=== PATIENT | female | born 1950 | race Hispanic/Latino ===

== ENCOUNTER → 2018-08-26 | Outpatient (CLI) | payer OTHER | END | disposition home or self-care (01) | LOC: OIH 14:40 | PROVIDERS: ATTEND Family Medicine | DX: Z13.6 Encounter for screening for cardiovascular disorders (principal) | CPT/HCPCS: 75571 ==

== ENCOUNTER 2022-09-02 16:28 | Emergency (ER) | payer OTHER ==
[~2022-09-02] VITALS: Ht 157.5 cm; Wt 72.6 kg
[2022-09-02 17:01] LABS: BASOPHILS % (AUTO) 0.4 % (0.0-5.0); EOSINOPHILS % (AUTO) 0.5 % (0.0-8.0); HEMATOCRIT 36.2 % (36-48); LYMPHOCYTES % (AUTO) 19.1 % (21.0-51.0); MEAN CORPUSCULAR HEMOGLOBIN 32.5 pg (27.0-33.0); MEAN CORPUSCULAR HGB CONC 33.7 g/dL (32.0-36.0); MEAN CORPUSCULAR VOLUME 96.5 fL (79-99); NEUTROPHILS % (AUTO) 72.7 % (40.0-77.0); PLATELET COUNT (AUTO) 203 K/uL (130-400); RED BLOOD CELL COUNT(AUTO) 3.75 MIL/uL (4.00-5.50); RED CELL DISTRIBUTION WIDTH 13.2 % (11.0-15.5); WHITE BLOOD COUNT (AUTO) 7.6 K/uL (4.8-10.8)
[2022-09-02 17:15] LABS: CREATININE 0.8 mg/dL (0.5-1.5); POTASSIUM 3.7 mmol/L (3.5-5.1)
[2022-09-02 17:27] LABS: ALBUMIN 4.2 g/dL (3.5-5.0); AMYLASE 69 U/L (25-115); LIPASE 108 U/L (114-286); TOTAL PROTEIN, SERUM 7.3 g/dL (6.0-8.3)
[2022-09-02 17:29] VITALS: BP 157/74
[2022-09-02] MEDS ORDERED: FAMOTIDINE 20MG VIAL IV ONE (17:30)
[2022-09-02] MEDS ORDERED: MAG/ALUM/SIMETH 30 ML UDCUP PO ONE (17:30)
[2022-09-02 17:35] LABS: APPEARANCE,URINE CLEAR (CLEAR); BILIRUBIN,URINE NEGATIVE (NEGATIVE); COLOR,URINE COLORLESS (YELLOW); GLUCOSE, URINE (UA) NEGATIVE (NEGATIVE); KETONES,URINE NEGATIVE (NEGATIVE); LEUKOCYTE ESTERASE ,URINE 25 Leu/uL (NEGATIVE); NITRATE,URINE NEGATIVE (NEGATIVE); PH,URINE 5.5 (5.0-8.0); PROTEIN,URINE NEGATIVE (NEGATIVE); UROBILINOGEN,URINE 0.2 mg/dL (0.2-1.0)
[2022-09-02 17:42] LABS: RBC,URINE 0-1 /HPF (0-1)
[2022-09-02] MEDS ORDERED: PANT40TA54 PO (18:05)
== END 2022-09-02 18:24 | disposition home or self-care (01) ==
LOC: EDH 16:28
DX: K29.70 Gastritis, unspecified, without bleeding (principal); R07.89 Other chest pain; R10.13 Epigastric pain; I10 Essential (primary) hypertension; K21.9 Gastro-esophageal reflux disease without esophagitis; E03.9 Hypothyroidism, unspecified; Z88.1 Allergy status to other antibiotic agents; Z88.8 Allergy status to other drugs, medicaments and biological substances
CPT/HCPCS: 99285; 96374; 71045; 82150; 84484; 80053; 83880; 83690; 85025; 81001; 36415; 93005; J3490